=== PATIENT | female | born 1985 | race Caucasian/White ===

== ENCOUNTER → 2019-04-23 14:53 | Outpatient (CLI) | payer OTHER, SELFPAY ==
[2019-04-23 15:30] VITALS: BP 138/93; PULSE 83; RESP 16; TEMP 36.6; O2SAT 100; BMI 39.9
[2019-04-23] MEDS: Dextrose 5%-Lactated Ringers 1,000 ML 999 ML IV (15:52)
[2019-04-23] MEDS: Ondansetron 4 MG/2 ML Vial IV (15:54)
== END ==
PROVIDERS: Referring Provider Obstetrics & Gynecology; Visit Provider Obstetrics & Gynecology
DX: E86.0 Dehydration (principal)
CPT/HCPCS: 96361; 96374; A4216; J2405

== ENCOUNTER → 2019-05-23 12:28 | Outpatient (CLI) | payer OTHER, SELFPAY ==
[2019-05-23 11:22] VITALS: BMI 39.9
== END ==
PROVIDERS: PCP Family Medicine; Referring Provider Obstetrics & Gynecology; Visit Provider Obstetrics & Gynecology
DX: Z34.90 Encounter for supervision of normal pregnancy, unspecified, unspecified trimester (principal)
CPT/HCPCS: 84702

== ENCOUNTER → 2019-06-29 15:54 | Outpatient (CLI) | payer OTHER, SELFPAY ==
[2019-06-29 15:07] VITALS: BMI 39.9
[2019-06-29 16:37] LABS: Absolute Neutrophil Count 8.8 X10^3/uL (2.0-7.7); Basophil# 0.02 X10^3/uL; Basophil% 0.2 % (0-1); Eosinophil# 0.05 X10^3/uL; Eosinophils% 0.4 % (0-5); Hematocrit 37.9 % (37-47); Hemoglobin 12.7 g/dL (12.0-15.0); Lymphocyte % 25.9 % (19-41); Mean Corp Hgb Conc 33.5 g/dL (32-36); Mean Corpuscular Hgb 28.9 pg (27.0-32.0); Mean Corpuscular Volume 86.1 fL (81-99); Mean Platelet Vol. 11.5 fl (6.2-12.0); Monocyte# 0.79 X10^3/uL; NRBC Flagged by Analyzer 0 % (0-5); Neutrophil # 8.84 X10^3/uL (2.7-7.7); Neutrophil % 67.2 % (47-70); Platelet Count 271 K/mm3 (150-450); RBC Distribution Width CV 12.8 % (11.6-14.6); RBC Distribution Width SD 39.7 fl (35.1-43.9); White Blood Count 13.1 K/mm3 (4.4-11.0)
[2019-06-29 17:09] LABS: NATERA MAILED SPECIMEN
[2019-07-02 11:05] LABS: HIV - WCH Non-Reactive (Nonreactive); Hepatitis B Surface Antigen Non-Reactive (Nonreactive); Hepatitis C Antibody Non-Reactive (Nonreactive); Rubella IgG 22.8 IU/mL
[2019-07-05 02:30] LABS: Rapid Plasmin Reagin (RPR) NONREACTIVE (NONREACTIVE)
== END ==
PROVIDERS: PCP Family Medicine; Referring Provider Obstetrics & Gynecology; Visit Provider Obstetrics & Gynecology
DX: O09.90 Supervision of high risk pregnancy, unspecified, unspecified trimester (principal); Z3A.00 Weeks of gestation of pregnancy not specified; Z31.430 Encounter of female for testing for genetic disease carrier status for procreative management
CPT/HCPCS: 85025; 86592; 86703; 86762; 86803; 86850; 86900; 86901; 87086; 87088; 87340

== ENCOUNTER → 2020-03-13 | Outpatient (CLI) | payer OTHER, SELFPAY ==
[2020-03-13 08:10] VITALS: BMI 42.9
== END | disposition home or self-care (01) ==
LOC: LABSPEC 13:02
PROVIDERS: PCP Family Medicine; Visit Provider Obstetrics & Gynecology
DX: R10.2 Pelvic and perineal pain (principal)
CPT/HCPCS: 87077; 87086; 87088

== ENCOUNTER → 2020-03-17 14:44 | Outpatient (CLI) | payer OTHER, SELFPAY ==
[2020-03-13 08:10] VITALS: BMI 42.9
--- NOTE | 2020-03-17 14:45 | US_ITS ---
STUDY: ULTRASOUND OF THE FEMALE PELVIS - COMPLETE REASON FOR EXAM: Female, 34 years old. VAGINAL PAIN X 6 MONTHS, SINCE MISCARRIAGE IN JULY 2019 LMP: 03/03/2020 TECHNIQUE: Transabdominal and Transvaginal TECHNICAL QUALITY: Adequate. COMPARISON: None. FINDINGS: The uterus is retroverted and is tilted to the right side of the pelvis. The uterus measures 6.1 cm x 4.1 cm x 3.3 cm. There is a Nabothian cyst of the cervix. The endometrium measures 7 mm in thickness, and is hyperechoic. There is no demonstrated endometrial mass. There is no demonstrated myometrial mass. I.U.D. - The patient does not have an I.U.D. The right ovary is visualized. The right ovary measures 4.2 cm x 2 cm x 1.7 cm. There is a 2.1 cm x 1.8 cm cyst in the right ovary. There is no visualized right adnexal mass or complex lesion. There is normal arterial and normal venous vascularity. The left ovary is visualized. The left ovary measures 3.5 cm x 2.1 cm x 2.3 cm. Multiple follicles are seen. There is no visualized left adnexal mass or complex lesion. There is normal arterial and normal venous vascularity. There is no fluid in the cul-de-sac. The pre void volume of the bladder was 274 ml. Polycystic ovary disease: No. US/Pelvic (Non ) IMPRESSION: 2.1 cm x 1.8cm cyst in the right ovary. Multiple follicles are seen in the left ovary. Electronically Signed: Michael Le MD at 15:51 EST , Service support ,
--- NOTE | 2020-03-17 14:45 | US_ITS ---
STUDY: ULTRASOUND OF THE FEMALE PELVIS - COMPLETE REASON FOR EXAM: Female, 34 years old. VAGINAL PAIN X 6 MONTHS, SINCE MISCARRIAGE IN JULY 2019 LMP: 03/03/2020 TECHNIQUE: Transabdominal and Transvaginal TECHNICAL QUALITY: Adequate. COMPARISON: None. FINDINGS: The uterus is retroverted and is tilted to the right side of the pelvis. The uterus measures 6.1 cm x 4.1 cm x 3.3 cm. There is a Nabothian cyst of the cervix. The endometrium measures 7 mm in thickness, and is hyperechoic. There is no demonstrated endometrial mass. There is no demonstrated myometrial mass. I.U.D. - The patient does not have an I.U.D. The right ovary is visualized. The right ovary measures 4.2 cm x 2 cm x 1.7 cm. There is a 2.1 cm x 1.8 cm cyst in the right ovary. There is no visualized right adnexal mass or complex lesion. There is normal arterial and normal venous vascularity. The left ovary is visualized. The left ovary measures 3.5 cm x 2.1 cm x 2.3 cm. Multiple follicles are seen. There is no visualized left adnexal mass or complex lesion. There is normal arterial and normal venous vascularity. There is no fluid in the cul-de-sac. The pre void volume of the bladder was 274 ml. Polycystic ovary disease: No. US/Transvaginal Non- IMPRESSION: 2.1 cm x 1.8cm cyst in the right ovary. Multiple follicles are seen in the left ovary. Electronically Signed: Michael Le MD at 15:51 EST , Service support ,
== END ==
PROVIDERS: PCP Family Medicine; Referring Provider Obstetrics & Gynecology; Visit Provider Obstetrics & Gynecology
DX: R10.2 Pelvic and perineal pain (principal)
CPT/HCPCS: 76830; 76856

== ENCOUNTER → 2020-07-24 13:39 | Outpatient (CLI) | payer OTHER, SELFPAY ==
[2020-05-12 10:36] VITALS: BMI 43.8
[2020-07-24 15:37] LABS: Anion Gap 5 (5-15); BUN 12 mg/dL (7-18); Calcium,Total 8.8 mg/dL (8.5-10.1); Chloride 103 mmol/L (98-107); Creatinine, Serum 0.63 mg/dL (0.55-1.02); EST Glomerular Filtration Rate 114 mL/min (>60); Est Glom Filt Rate - Afr Amer 138 mL/min (>60); Glucose 87 mg/dL (74-106); Magnesium 2.1 mg/dL (1.6-2.6); Potassium 3.9 mmol/L (3.5-5.1); Sodium Level 138 mmol/L (136-145); Thyroid Stim Hormone (TSH) 0.93 uIU/mL (0.358-3.74)
== END ==
PROVIDERS: PCP Family Medicine; Referring Provider Family Medicine; Visit Provider Family Medicine
DX: R00.2 Palpitations (principal)
CPT/HCPCS: 36415; 80048; 83735; 84443

== ENCOUNTER 2021-03-02 07:57 | Outpatient (CLI) | payer OTHER, SELFPAY | END 2021-03-02 23:59 | disposition short-term general hospital (02) | LOC: LABSPEC 03-03 07:57 | PROVIDERS: PCP Family Medicine; Referring Provider Family Medicine; Visit Provider Family Medicine | DX: U07.1 COVID-19 (principal) | CPT/HCPCS: 87635; U0003; U0005 ==

== ENCOUNTER → 2021-11-05 | Outpatient (CLI) | payer OTHER, SELFPAY ==
[2021-11-11 13:03] LABS: HPV APTIMA, High Risk Negative (Negative)
== END | disposition home or self-care (01) ==
LOC: LABSPEC 11:01
PROVIDERS: PCP Family Medicine; Referring Provider Obstetrics & Gynecology; Visit Provider Obstetrics & Gynecology
DX: Z12.4 Encounter for screening for malignant neoplasm of cervix (principal)
CPT/HCPCS: 87624; 88175; G0145

== ENCOUNTER → 2021-11-09 | Outpatient (CLI) | payer OTHER, SELFPAY ==
--- NOTE | 2021-11-09 15:49 | BI_ITS ---
MAMMOGRAPHY - BILATERAL SCREENING 3-D TOMOSYNTHESIS REASON FOR EXAM: Female, 36 years old. screening mammogram PERTINENT HISTORY: No significant family history. TECHNIQUE: 2-D mammograms and 3-D Tomosynthesis of the breast (s) were performed. CAD was performed. COMPARISON: None. FINDINGS: The breast composition is heterogeneously dense that can obscure small breast masses. Scattered benign calcifications are seen. No dense spiculated masses or suspicious microcalcifications are identified. No architectural distortion is identified. There is no skin thickening or retraction. There has been no significant change since the prior study. BI/SCRN MAMM (CAD)W/THO BILAT IMPRESSION: No mammographic signs of malignancy. Routine yearly mammograms recommended. ASSESSMENT CATEGORY: BIRADS Category 1: Negative. A letter regarding these results will be sent to the patient by the facility within 30 days. FOLLOW UP RECOMMENDATION: Yearly follow up mammogram recommended. (A) Approximately 10% of breast cancers are not detected by mammography. A normal mammogram should not delay biopsy of a clinically suspicious abnormality. Electronically Signed: Oliverio Echeverria MD at 16:40 EDT ,
== END | disposition home or self-care (01) ==
LOC: OPBI 15:48
PROVIDERS: PCP Family Medicine; Visit Provider Obstetrics & Gynecology
DX: Z12.31 Encounter for screening mammogram for malignant neoplasm of breast (principal)
CPT/HCPCS: 77063; 77067

== ENCOUNTER → 2022-11-10 | Outpatient (CLI) | payer OTHER, SELFPAY ==
[2022-11-10 10:50] LABS: Vitamin D,25 Hydroxy 36.3 ng/mL
[2022-11-10 10:54] LABS: Cholesterol 172 mg/dL (200); Estradiol 96.5 pg/mL; Follicle Stimulating Hormone 7.9 mIU/mL; Glucose 98 mg/dL (74-106); High Density Lipoprotein 42 mg/dL; Luteinizing Hormone 5.7 mIU/mL; Thyroid Stim Hormone (TSH) 0.89 uIU/mL (0.358-3.74); Triglycerides 106 mg/dL; Very Low Density Lipoprotein 21 mg/dL (5-40)
== END | disposition home or self-care (01) ==
PROVIDERS: PCP Family Medicine; Referring Provider Obstetrics & Gynecology; Visit Provider Obstetrics & Gynecology
DX: N93.9 Abnormal uterine and vaginal bleeding, unspecified (principal); Z13.21 Encounter for screening for nutritional disorder; Z13.1 Encounter for screening for diabetes mellitus
CPT/HCPCS: 36415; 80061; 82306; 82670; 82947; 83001; 83002; 84443

== ENCOUNTER → 2022-11-26 | Outpatient (CLI) | payer OTHER, SELFPAY ==
--- NOTE | 2022-11-26 14:01 | BI_ITS ---
MAMMOGRAPHY - BILATERAL SCREENING REASON FOR EXAM: Female, 37 years old. Routine annual screening examination. PERTINENT HISTORY: Grandmother with breast cancer. Aunt with breast cancer. TECHNIQUE: Digital bilateral breast tho (3D mammographic acquisition) in the CC and MLO projections. 2-D mediolateral oblique (MLO) and craniocaudad (CC) views of both breasts were obtained. CAD: Full Field Digital Mammography with Computer Added Detection was performed. COMPARISON: Comparison is made with prior examination of November 09, 2021. FINDINGS: Breast Composition: There are scattered areas of fibroglandular density. There are no dominant masses or suspicious calcifications. Minutes again, there is asymmetry of breast tissue were more breast tissue is seen in the right breast as compared to the left side. No other significant abnormalities are identified. There has been no significant change since the prior study. BI/SCRN MAMM (CAD)W/THO BILAT IMPRESSION: Stable bilateral screening mammogram. Yearly follow-up mammogram recommended. (A) ASSESSMENT CATEGORY: BIRADS Category 2: Benign. A letter regarding these results will be sent to the patient by the facility within 30 days. Approximately 10% of breast cancers are not detected by mammography. A normal mammogram should not delay biopsy of a clinically suspicious abnormality. [id number] Electronically Signed: Michael eL MD at 14:55 EDT ,
== END | disposition home or self-care (01) ==
LOC: OPBI 13:55
PROVIDERS: PCP Family Medicine; Referring Provider Obstetrics & Gynecology; Visit Provider Obstetrics & Gynecology
DX: Z12.31 Encounter for screening mammogram for malignant neoplasm of breast (principal)
CPT/HCPCS: 77063; 77067

== ENCOUNTER → 2023-12-01 | Outpatient (CLI) | payer OTHER, SELFPAY ==
--- NOTE | 2023-12-01 10:31 | BI_ITS ---
MAMMOGRAPHY - BILATERAL SCREENING REASON FOR EXAM: Female, 38 years old. Routine annual screening examination. PERTINENT HISTORY: Grandmother with breast cancer. Aunt with breast cancer. TECHNIQUE: Digital bilateral breast tho (3D mammographic acquisition) in the CC and MLO projections. 2-D mediolateral oblique (MLO) and craniocaudad (CC) views of both breasts were obtained. CAD: Full Field Digital Mammography with Computer Added Detection was performed. COMPARISON: Comparison is made with prior study dated November 26, 2022 and November 09, 2021. FINDINGS: Breast Composition: There are scattered areas of fibroglandular density. There are no dominant masses or suspicious calcifications. Once again, there is asymmetry of breast tissue with more breast tissue is seen in the upper outer aspect of the right breast as compared to the left. No other significant abnormalities are identified. There has been no significant change since the prior study. BI/SCRN MAMM (CAD)W/THO BILAT IMPRESSION: Stable bilateral screening mammogram. Yearly follow-up mammogram recommended. (A) ASSESSMENT CATEGORY: BIRADS Category 2: Benign. A letter regarding these results will be sent to the patient by the facility within 30 days. Approximately 10% of breast cancers are not detected by mammography. A normal mammogram should not delay biopsy of a clinically suspicious abnormality. [id number] Electronically Signed: Michael Le MD at 12:03 EDT ,
== END | disposition home or self-care (01) ==
LOC: OPBI 10:31
PROVIDERS: PCP Family Medicine; Referring Provider Obstetrics & Gynecology; Visit Provider Obstetrics & Gynecology
DX: Z12.31 Encounter for screening mammogram for malignant neoplasm of breast (principal)
CPT/HCPCS: 77063; 77067

== ENCOUNTER → 2023-12-16 | Outpatient (CLI) | payer OTHER, SELFPAY ==
--- NOTE | 2023-12-16 | VUL_PTH ---
PATHOLOGY RESULTS PATIENT: MELY KNOTT LOC: [facility] U#:[id number] AGE/SX: 38/F ROOM: RE12/16/[address]: Dr. Elaine Rey DO : 1985 BED: DIS: 12/16/2023 SPEC #: [id number] RECD: 12/16/23 16:49 STATUS: ELISE[facility] #: [id number] REINA: 12/16/23 00:[address]: Elaine Rey DEPT: SURGICAL PATHOLOGY RECD BY: Enrique Luis ENTERED: 12/19/23 09:15 SP TYPE: VULVA BX OTHR DR: Dr. Arnol Farrell MD Tissues: Vulva, NOS Procedures: Surgery Specimen Level IV HEADER OPERATION: Vulvar biopsy PRE-OP DIAGNOSIS: Lichen sclerosis TISSUE SUBMITTED: Vulva/perineum MICROSCOPIC DIAGNOSIS Vulva/perineum, biopsy: Fragments of squamous mucosa with acanthosis, hyperkeratosis and parakeratosis. Minimal chronic inflammation. See comment. 12/20/2023 COMMENT Changes consistent with lichen sclerosis are not seen. MICROSCOPIC DESCRIPTION Slides are reviewed. GROSS DESCRIPTION Received is one container labeled with the patient's name and not further designated. The specimen consists of two irregular fragments of light blancas soft tissue that in aggregate measure 0.5 x 0.5 x 0.1 cm. The specimen is totally submitted in one cassette. 12/19/2023 TC:5 CPT:84109
--- OUTSIDE RECORDS SUMMARY | 2023-12-16 17:40 | XMS RPT_ITS | CCD ---
Author Organization [facility] CliniSynd Care Team Providers Care Military Exchange Wireless Manager Name Role Phone Unavailable Primary Care Provider Unavailabl e No, Physician Primary Care Provider Unavailabl e NO, PHYSICIAN Primary Care Unavailable VANITA KATZ Attending Unavailable MANSOOR ALEGRE Admitting Unavailab MANSOOR Alberto Referring Unavailab MAR Jay Attending Unavailable Byron, Physician Primary Care Provider Unavailabl e Results Test Name Value Interpretation Reference Range Facil ity CNPNon 07-31-2019 CNPN Telephone ([id number]) MELY KNOTT ([id number]) 1985 F Date Time Provider Department 07/31/19 HISTORICAL [id number] During your visit today, we recorded the following information about you: Paz Ball RN 07/31/2019 4:03 PM Signed Received records from [facility] regarding patient for termination request for Down Syndrome, growth restriction and a suspected cardiac defect. Staff message with follow up phone call sent to Dr. Alicea and Dr. Holguin. Per Dr. Alicea: Shantanu Ball RN; Loree Holguin ? ?I spoke with Kailee Green [facility]. There is some question about dating, however I told Kailee that due to her reported GA it is in the patient's best interest to go to [place] or [place] for termination services. I'm supposed to follow up with Kailee today. Shantanu Ball RN; Loree Holguin ? I just spoke to Kailee and the patient will seek services elsewhere. Thanks Paz. Paz Ball RN Allergies As of Date: 07/31/2019 (No Known Allergies) Date Reviewed: 02/23/2018 Reviewed by: Shellie Crawford Ma - Fully Assessed Reason for Visit: termination [Other] Prescriptions as of 07/31/2019 Sig: NORETHINDRONE 1 MG-ETHINYL ES* Take 1 tablet by mouth once d* Problem List As Of Date 07/31/2019 Noted Resolved Routine medical exam [Z00.00] 12/12/2013 More... Encounter Status:Closed by PAZ BALL RN on 07/31/19 Normal [facility] Toxoplasma IGG AND IGM (Pren atal Screen)on 07-26-2019 Toxoplasma IgG (Dye Test) <1:16 Normal <1:16 NEGATIVE [facility] Comment on above: Performed By: #### F MARILYNN #### [place] [id number] Toxoplasma IgM JUSTIN 0.0 Normal [facility] Comment on above: Result Comment: 0.0-1.6 = Negative 1.7-1.9 = Equivocal >= 2.0 = Positive Negative Testing Performed: [facility] [address] [id number] Performed By: #### F MARILYNN #### [place] [id number] Z Miscellaneous Sendouton Comment, Sendout ----- Normal [facility] Comment on above: Order Comment: HSV I gM TO QUEST Result Comment: The IFA precedure for measuring IgM antibodies to HSV 1 and HSV 2 detects both type-common and type-specific HSV antibodies. Thus, IgM reactivity to both HSV 1 and HSV 2 may represent crossreactive HSV antibodies rather than exposure to both HSV 1 and HSV 2. Performed By: #### Z MSO #### [address] [id number] Patient Results ----- Normal [facility] Comment on above: Order Comment: HSV I gM TO QUEST Result Comment: TEST : RESULT: REFERENCE RANGE: HSV 1 IgM SCREEN: NEGATIVE NEGATIVE HSV 2 IgM SCREEN: NEGATIVE NEGATIVE Performed By: #### Z MSO #### [address] [id number] Performed by: see below Normal [facility] Comment on above: Order Comment: HSV I gM TO QUEST Result Comment: Testing Performed. [facility] [address] [place] [address] Performed By: #### Z MSO #### [address] [address] [facility]2019 [facility] SEE COMMENTS [facility] Comment on above: Order Comment: ELMER AFPA Alpha-Fetoprotein Amniotic Fluid Result Comment: Test Result Flag Unit RefValue Alpha Fetoprotein, AF [place] by US Scan 12/09/19 GA at Collection by Scan 18,5 wk,d GA Used Scan estimate Alpha Fetoprotein, AF 1.14 MoM ( 10.1 ug/mL ) Results Negative Interpretation Amniotic fluid AFP is within reference limits for the gestation provided. General Test Info Please contact the genetic counselor or refuse laborer loss prevention and safety manager at , should you have questions regarding this report. Results are based upon analyte values and the clinical information provided; incorrect information may significantly change the results. The screen positive cut-off is 2.0 MoM. Test Performed by: [facility] [address] [place] [address] Raise Miner: Perico Akbar M.D. Ph.D.; CLIA# [id number] Testing Performed [address] [address] Performed By: #### M OMSO #### [address] [address] Hepatitis B Surface Agon Hepatitis Bs Antigen Negative Normal Negative [facility] Comment on above: Result Comment: Test Performed by: [facility] [place] [address] Raise Miner: Perico Akbar M.D. Ph.D.; CLIA# [id number] Performed By: #### H BSAG #### [address] [address] Samaria Miscellaneous Sendouton 07-18-2019 [facility] SEE COMMENTS [facility] Comment on above: Order Comment: GOKEY CMVP CMV ABS IGG and IGM 1.0 ml serum, refrig. Result Comment: Test Result Flag Unit RefValue Cytomegalovirus Ab, IgM and IgG, S Cytomegalovirus Ab, IgM, S Negative Negative Cytomegalovirus Ab, IgG, S Positive Negative Test Performed by: [facility] [place] [address] Raise Miner: Perico Akbar M.D. Ph.D.; CLIA# [id number] Testing Performed [facility] [address] [place] [address] Performed By: #### M OMSO #### [address] [address] Parvovirus B19 IgG AND M Abo n 07-18-2019 Parvovirus Abs Interpretation SEE BELOW Normal [facility] Comment on above: Result Comment: No a ntibody to Parvovirus B19 detected. Acute infection cannot be ruled out as antibody levels may be below the limit of detection. If clinically indicated, a second serum should be submitted in 14-21 days. ADDITIONAL INFORMATION This test has been modified from the lower in supervisor's instructions. Its performance characteristics were determined by [facility] in a manner consistent with CLIA requirements. This test has not been cleared or approved by the U.S. Food and Drug Administration. Test Performed by: [facility] [address] Raise Miner: Perico Akbar M.D. Ph.D.; CLIA# [id number] Performed By: #### P ARVO #### [address] [id number] Parvovirus B19 IgG Negative Normal Negative [facility] Comment on above: Performed By: #### P ARVO #### [address] [id number] Parvovirus B19 IgM Negative Normal Negative [facility] Comment on above: Performed By: #### P ARVO #### [address] [address] Rubella IgG Abon 07-18-2019 Rubella IgG Ab Positive Normal [facility] Comment on above: Result Comment: Resu lts suggest response to immunization or prior exposure to the virus. REFERENCE VALUE Vaccinated: Positive (>=1.0 AI) Unvaccinated: Negative (<=0.7 AI) Performed By: #### R UBLG #### [address] [address] Rubella IgG Index 1.0 Normal [facility] Comment on above: Result Comment: Test Performed by: [facility] [address] Raise Miner: Perico Akbar M.D. Ph.D.; CLIA# [id number] Performed By: #### R UBLG #### [address] [address] Z Miscellaneous Sendouton Test Name HSV IgM Normal [facility] Comment on above: Order Comment: HSV I gM TO QUEST Performed By: #### Z MSO #### [address] [address] Rapid Plasma Reaginon 2019 Rapid Plasma Reagin Nonreactive Normal [facility] Comment on above: Result Comment: REFE RENCE RANGE: Nonreactive A reactive RPR should be verified by an FTA to confirm active infection. Performed By: #### R NM #### [address] [address] CMV PCR, Quantitativeon 06-22 CMV PCR, Quantitative CMV PCR, Quantitative: NEGATIVE: No CMV DNA DETECTED. [facility] Collected: 07/13/19 16:34 Site: Received : 07/13/19 16:40 CMV PCR, Quantitative FINAL 07/17/19 13:44 NEGATIVE: No CMV DNA DETECTED. - Method: PCR amplification with fluorescent probe detection using [employer] ASR CMV reagents from [employer]. - The quantitative range of this assay is 800 (2.9 log 10) to 400,000,000 (8.6 log 10) IU/mL with a limit of detection of 300 (2.5 log 10) IU/mL. - Comment: This test was developed and its performance determined by [facility]. It has not been cleared or approved by the U.S. Food and Drug Administration. The FDA has determined that such clearance or approval is not necessary. This test is used for clinical purposes. It should not be regarded as investigational or for research. Pursuant to the requirements of CLIA'88, this laboratory has established and verified the test's accuracy and precision. - Reviewed by: Karthik Garibay Normal [facility] Comment on above: Performed By: #### C MVQN #### [place] [id number] FISH Probeon 07-13-2019 FISH Probe SEE BELOW Normal [facility] Comment on above: Result Comment: SPEC IMEN: AMNIOTIC FLUID- GA=16w3d CLINICAL INFORMATION: O28.8 Maternal serum positive for trisomy 21; O09.92 High-risk in second trimester; echogenic bowel and lungs; IUGR TEST: Chromosome enumeration of interphase nuclei for chromosomes X, Y, 13, 18 and 21 by FISH analysis. 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 Three hybridization signals for chromosome 21 and two hybridization signals for chromosomes X, 13 and 18 were observed (50 interphase cells were scored for each of the five probes X, Y, 18, 13 and 21). Medical decisions should not be made solely on the basis of this screening test. This test will not detect numerical abnormalities of other chromosomes, structural abnormalities of any chromosome, or low-level mosaicism. Also, genetic variations of the targets may lead to errors in detection of aneuploidy. The karyotype will be completed as soon as possible. Genetic counseling is available through [facility] . FISH ISCN: (DXZ1,D18Z1)x2,(RB1x2,[id number]/[id number]) ANALYSIS: Technique: Fluorescence in situ hybridization (FISH) Methodology: [employer]ne[employer]ion Assay Probes Used: LSI 13 RB-1, D18Z1, LSI 21, DXZ1, DYZ3 # Cells Examined: 50 interphase cells scored for each of X, Y, 18, 13 21 probes A normal male control was run simultaneously. AneuVysion has been cleared by the FDA as an in vitro diagnostic adjunct test to standard cytogenetic analysis. This laboratory is certified under the Clinical Laboratory Improvement Amendments of 1988 (CLIA-88) as qualified to perform high complexity clinical laboratory testing. 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 Genetic counseling is available through the [facility] . The risk of recurrence approximates 1% or the maternal age-associated risk, whichever is higher. diagnosis is recommended in future pregnancies. ANALYSIS: # Metaphases examined: 22 Banding Resolution: 550 # Metaphases analyzed: 22 Banding Technique: GTW # Metaphases karyotyped: 15 NOTE: This completes all testing ordered in the [facility]. Amniocyte cell cultures will be discarded 10 days after the date of this report unless the [facility] receives a signed requisition or prescription ordering additional testing [[facility] ] ASSOCIATED CASE #: [id number] OLGA AVILA, PH.D., [facility] 07/30/2019 Performed By: #### F MARILYNN #### [place] [address] Medical Cytology Teston 06-22 Medical Cytology Test SEE BELOW Normal [facility] Comment on above: Result Comment: SPEC IMEN: AMNIOTIC FLUID SPECIMEN TYPE: Cultured Amniocytes EXTRACTION: DNA extracted from Cultured Amniocytes from [facility] Method: Gentra Puregene Reagents from [employer] ANALYSIS: DNA concentration: 213.5ng/ul Total volume DNA: 250ul (in TE buffer) DNA Purity 260/280 Ratio: 2.0 Total DNA yield: 53.4ug STORAGE AND SPECIAL INSTRUCTIONS: The extracted DNA is stored in the [facility] Laboratory at -70 degrees. Holding for future testing. Any questions regarding this sample, please contact [facility] at [phone]. BEATRIS MARSH 08/10/2019 Performed By: #### F MARILYNN #### [address] [address] Progress Noteon 07-13-2019 [employer] Authentication Interface Message Text The total patient time of the visit was 30 minutes, of which greater than 50% of the time was spent counseling and coordinating care. Normal [facility] Encounters Encounter Date Encounter Type Care Provider Facility Start: 10-03-2020 Chart abstracting External Transcrib ed [facility] Start: 06-04-2020 End: 06-04-2020 Patient encounter procedure PHYSICIAN BY[facility] Start: 06-04-2020 End: 06-04-2020 Patient encounter procedure Mansoor Alegre Work Phone: [facility] Physician [facility] Start: 05-13-2020 End: 05-13-2020 Patient encounter procedure [facility] Start: 05-13-2020 End: 05-13-2020 Patient encounter procedure [facility] Physician [facility] Covid Vaccine [facility] Plan of Treatment Date Care Activity Detail Author Start: 12-20-2022 Tetanus vaccination Tetanus: Every 10yrs [facility] Start: 10-22-2020 Influenza vaccination Sequential Influenza Vaccine (#1) [facility] Start: 06-04-2020 End: 06-04-2020 Immunization 06/04/2020 Immunization Primary Care Mansoor Alegre MD [address] [place] [address] [phone] [facility] Physician [facility] Start: 06-03-2020 COVID-19 Vaccine (2 - Pfizer 2-dose series) COVID-19 Vaccine (2 - Pfizer 2-dose series) [facility] Start: 10-23-2019 Influenza vaccination given Sequential Influenza Vaccine (#1) [facility] Start: 02-23-2019 History and physical examination, annual for health maintenance Wellness Visit [facility] Start: 09-30-2003 Hepatitis C antibody, confirmatory test Hepatitis C Screening [facility] Start: 09-30-2003 Hepatitis C screening Hepatitis C Screening [facility] Start: 2000 HIV screening [facility] Start: 1997 Adolescent depression screening assessment Depression Screening (PHQ9) [facility] Start: 1997 Depression screening using PHQ-9 (Patient Health Questionnaire 9) score Depression Screening (PHQ9) [facility] Start: 1988 History and physical examination, annual for health maintenance Wellness Visit [facility] Start: 1985 Screening for malignant neoplasm of cervix Pap Smear [facility] Immunizations Immunization Date Immunization Notes Care Provider Nia webb 06-04-2020 Pfizer SARS-CoV-2 Vaccination Vanita guevara [facility] 05-13-2020 [facility] Social History Date Type Detail Facility Tobacco smoking status NHIS Unknown if ev er smoked [facility] Start: 1985 Sex Assigned At [facility] Exposure to SARS-CoV -2 (event) Not sure [facility] 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 [facility] Summary Purpose Family History No Family History Records FoundNo Family History Records FoundNo Family History Records Found Advance Directives Documents on File Type Date Recorded Patient Telephone Instrument Supervisor Expl anation Advance Directives and Living Will Additional Source Comments INFORMATION SOURCE (unrecogn ized section and content) DATE CREATED AUTHOR 07/31/2019 [facility] DATE CREATED AUTHOR AUTHOR'S ORGANIZ ATION 09/08/2019 [facility] DATE CREATED AUTHOR AUTHOR'S ORGANIZ ATION 06/05/2020 [facility] Care Teams (unrecognized sec tion and content) Military Exchange Wireless Manager Relationship Specialty Start Date End Date No, Physician [facility] PCP - General 05/13/20 FOR RECORDS PERTAINING TO PATIENTS WHO ARE OR HAVE BEEN ENROLLED IN A CHEMICAL DEPENDENCY/SUBSTANCEABUSE PROGRAM, SOME INFORMATION MAY BE OMITTED. This clinical summary was aggregated from multiple sources. Caution should be exercised in using it in the provision of clinical care. This summary normalizes information from multiple sources, and as a consequence, information in this document may materially change the coding, format and clinical context of patient data. In addition, data may be omitted in some cases. CLINICAL DECISIONS SHOULD BE BASED ON THE PRIMARY CLINICAL RECORDS. [facility] [employer] provides no warranty or guarantee of the accuracy or completeness of information in this document.
== END | disposition home or self-care (01) ==
LOC: LABSPEC 16:41
PROVIDERS: PCP Family Medicine; Referring Provider Obstetrics & Gynecology; Visit Provider Obstetrics & Gynecology
DX: L90.0 Lichen sclerosus et atrophicus (principal)
CPT/HCPCS: 88305

== ENCOUNTER → 2024-11-12 | Outpatient (CLI) | payer OTHER, SELFPAY ==
[2024-11-12 11:15] LABS: AST(SGOT) 16 U/L (<=31); Alanine Aminotransfer ALT/SGPT 14 U/L (<=34); Albumin, Serum 4.2 g/dL (3.5-5.0); Alkaline Phosphatase 93 U/L (35-104); Anion Gap 12 (5-15); BUN 11 mg/dL (4-19); BUN/Creat Ratio 17.3 RATIO (10-20); Calcium,Total 9.1 mg/dL (7.6-11.0); Carbon Dioxide 20.2 mmol/L (21.0-32.0); Chloride 104 mmol/L (98-108); Globulin 3.5 g/dL (2.2-4.2); Glucose 92 mg/dL (70-99); Potassium 4.0 mmol/L (3.3-5.1); Vitamin D,25 Hydroxy 26.2 ng/mL (30-100)
== END | disposition home or self-care (01) ==
LOC: LAB 09:40
PROVIDERS: PCP Family Medicine; Referring Provider Obstetrics & Gynecology; Visit Provider Obstetrics & Gynecology
DX: N76.0 Acute vaginitis (principal); N93.9 Abnormal uterine and vaginal bleeding, unspecified; R42 Dizziness and giddiness
CPT/HCPCS: 36415; 80053; 82306; 84443; 87070; 87205

== ENCOUNTER → 2024-12-05 | Outpatient (CLI) | payer OTHER, SELFPAY ==
--- NOTE | 2024-12-05 07:45 | BI_ITS ---
EXAM: SCRN MAMM (CAD)W/THO BILAT DATE: 12/05/2024 CLINICAL HISTORY: F, Age 39 y/o , SCREEN FOR BREAST CANCER Grandmother with breast cancer. Aunt with breast cancer. TECHNIQUE: Procedure Code: [id number] Modality: MG Procedure: SCRN MAMM (CAD)W/THO BILAT COMPARISON: Prior exam(s) dated December 01, 2023.. FINDINGS: TISSUE DENSITY: The breasts are heterogeneously dense, which may obscure small masses. Bilateral Breast Mammographic Findings: No significant masses, calcifications or other abnormalities are identified. Stable asymmetry of breast tissue were more breast tissue is seen in the upper-outer quadrant of the right breast as compared to the left side. No suspicious masses, areas of developing architectural distortion, or suspicious calcifications. There has been no significant interval change. BI/SCRN MAMM (CAD)W/THO BILAT IMPRESSION: Stable bilateral screening mammogram. OVERALL FINAL ASSESSMENT BI-RADS 2: BENIGN RECOMMENDATION: Routine annual follow-up in 1 Year Additional Recommendation none A letter with findings and recommendations will be mailed to the patient. Reading Location: [place] [address]
== END | disposition home or self-care (01) ==
LOC: OPBI 07:39
PROVIDERS: PCP Family Medicine; Referring Provider Obstetrics & Gynecology; Visit Provider Obstetrics & Gynecology
DX: Z12.31 Encounter for screening mammogram for malignant neoplasm of breast (principal)
CPT/HCPCS: 77063; 77067